=== PATIENT | male | born 1945 | race American Indian/Alaskan Native ===

== ENCOUNTER 2019-02-03 09:21 | Outpatient (CLI) | payer OTHER | END 2019-02-03 09:22 | disposition home or self-care (01) | LOC: C.PAT 09:21 | DX: H25.011 Cortical age-related cataract, right eye (principal) ==

== ENCOUNTER 2019-02-18 06:28 | Day surgery (SDC) | payer MEDICARE, OTHER ==
[2019-02-03 09:34] VITALS: BMI 28.4
[~2019-02-18 06:28] MED LIST: Lactated Ringer's 500 ML IV ONE; Phenylephrine 2.5% Opht Soln OD SCH; Tropicamide 1% Opht SOLUTION OD SCH
[2019-02-18] MEDS ORDERED: Carbachol 0.01% IO ONE (07:13)
[2019-02-18] MEDS ORDERED: Povidone Iodine Ophthalmic 5% Soln ONE (07:13)
[2019-02-18] MEDS ORDERED: Chondroitin/Hyaluronate Opth Syringe KIT (0.55 ml-0.5 ml) IO ONE (07:13)
[2019-02-18] MEDS ORDERED: Tobramycin/Dexamethasone OPHT OINT ONE (07:13)
[2019-02-18] MEDS ORDERED: Hyaluronidase Human, Recombi 150 U/ML VIAL ONE (07:13)
[2019-02-18] MEDS ORDERED: Lidocaine 2% MPF (5 ml) Inj ONE (07:14)
[2019-02-18] MEDS ORDERED: Midazolam 2 MG/2 ML VIAL ONE (08:37)
[2019-02-18] MEDS ORDERED: Propofol 10 mg/ml Inj (20 ML) ONE (08:51)
[2019-02-18] MEDS ORDERED: Flumazenil 0.1 mg/ml Inj (5ml) IVP ONE (09:18)
[2019-02-18 10:06] VITALS: RESP 15
[2019-02-18 10:26] VITALS: BP 177/92; PULSE 62; TEMP 98; O2SAT 99
--- NOTE | 2019-02-18 14:49 | OP ---
PROCEDURE DATE: 02/18/2019 PREOPERATIVE DIAGNOSIS: Hypermature cataract, right eye. POSTOPERATIVE DIAGNOSIS: Hypermature cataract, right eye. PROCEDURE: Complex cataract surgery due to hypermaturity using VisionBlue, right eye. SURGEON: Huber Egan MD TYPE OF ANESTHESIA: Retrobulbar block. COMPLICATIONS: None. ESTIMATED BLOOD LOSS: Zero. PROCEDURE: The patient was brought to the operating room and properly identified. Anesthesia staff administered intravenous sedation and retrobulbar block was given to the surgical eye. The patient was then prepped and draped in the usual sterile fashion. Attention was turned to the surgical eye. A lid speculum was placed into interpalpebral fissure. Sitting temporally, two paracentesis incisions were made. The anterior chamber was filled with viscoelastic and a triplanar clear corneal incision was made. Using a cystitome, anterior capsular leaflet was created. Utrata forceps were used to create a continuous curvilinear capsulorrhexis. Balanced salt solution on a cannula was used to hydrodissect and hydrodelineate the lens. The lens was then phacoemulsified with no complications. Automated irrigation and aspiration was used to remove the cortex. Viscoelastic was used to deepen the anterior chamber. The lens was placed in the capsular bag. Automated irrigation and aspiration was used to remove the viscoelastic. The anterior chamber was filled with Miochol. The wounds were hydrated with balanced salt solution. There was noted to be no leak at the end of the case and the lens was well positioned. The lid speculum was removed. The eye was given antibiotics and steroids and covered with a patch and shield. The patient was returned to the recovery room in stable condition. ADDENDUM: Due to hypermaturity, VisionBlue was used to highlight the anterior capsule and a continuous curvilinear capsulorrhexis was created. Huber Egan MD
== END 2019-02-18 10:33 | disposition home or self-care (01) ==
LOC: C.SDS 06:28
PROVIDERS: ATTEND Ophthalmology
DX: H25.21 Age-related cataract, morgagnian type, right eye (principal)
CPT/HCPCS: 66982; 82948; J2250; J2704; J3470; J7120